=== PATIENT | male | born 1980 | race Two or more races ===

== ENCOUNTER 2021-03-28 21:18 | Emergency (ER) | payer SELFPAY ==
[~2021-03-28] VITALS: Ht 157.5 cm; Wt 56.7 kg
[2021-03-28 22:43] VITALS: BP 160/83
== END 2021-03-28 22:49 | disposition left against medical advice (07) ==
LOC: ER 21:20
DX: M25.562 Pain in left knee (principal); M25.561 Pain in right knee; M25.511 Pain in right shoulder; V43.52XA Car driver injured in collision with other type car in traffic accident, initial encounter; Y93.89 Activity, other specified; Y92.410 Unspecified street and highway as the place of occurrence of the external cause; Y99.8 Other external cause status